=== PATIENT | female | born 1980 | race Caucasian/White ===

== ENCOUNTER 2022-08-03 07:34 | Day surgery (SDC) | payer OTHER ==
[~2022-08-03] VITALS: Ht 167.6 cm; Wt 65.6 kg
[~2022-08-03 07:34] MED LIST: MICARDIS40 MG PO; PROCARDIA XL 6060 MG PO
[2022-08-03] MEDS ORDERED: PRIL40 PO (08:12)
[2022-08-03] MEDS ORDERED: JARDIANCE10 (08:13)
[2022-08-03] MEDS ORDERED: ADALAT CC60 MG PO (08:13)
[2022-08-03] MEDS ORDERED: FERROUS SU220 MG/5 M PO (08:14)
[2022-08-03 09:15] VITALS: BP 140/76; PULSE 72; TEMP 97.9
[2022-08-03 09:30] VITALS: BP 148/87; PULSE 70
[2022-08-03 09:45] VITALS: BP 169/79; PULSE 70
[2022-08-03 10:00] VITALS: BP 155/80; PULSE 72
--- NOTE | 2022-08-03 10:15 | NUR ---
0915 RETURNS TO ROOM 6. ALERT. AMBULATES TO RECLINER FROM CART. DENIES ABD PAIN, NAUSEA OR DYSPHAGIA. IN ROOM VITAL SIGNS OBTAINED. CALL LIGHT AT SIDE. 0935 TOLERATES PO WATER WITHOUT NAUSEA. REFUSES SNACK. 0940 DISCHARGE INSTRUCTIONS REVIEWED. 1013 DR. OLMOS HERE TO VISIT WITH PATIENT.
[2022-08-03 17:08] VITALS: BP 161/82; PULSE 75; TEMP 97.3
== END 2022-08-03 10:18 | disposition home or self-care (01) ==
LOC: SDCO 07:34
DX: K31.89 Other diseases of stomach and duodenum (principal); K25.7 Chronic gastric ulcer without hemorrhage or perforation; Z98.84 Bariatric surgery status
CPT/HCPCS: C1726; J2704; J7120

== ENCOUNTER 2023-10-25 07:55 | Outpatient (CLI) | payer OTHER ==
[~2023-10-25] VITALS: Ht 167.6 cm; Wt 69.0 kg
[~2023-10-25 07:55] MED LIST changes: +ADALAT CC30 MG PO; +ADALAT CC60 MG PO; +APRESOLINE 25MG25 MG PO; +APRESOLINE50 MG PO; +CYANOCOBAL1000 MCG/1 IM; +FERROUS SU220 MG/5 M PO; +HYDRALAZINE HC100 MG PO; +JARDIANCE10; +LASIX 20MG TABL20 MG PO; +PRIL40 PO; +TAB-A-VITE MUL1 EAC1 PO; +TOPROL XL 50MG50 MG PO; +TYLENOL 500MG500 MG PO
[2023-10-25] MEDS ORDERED: Iron Sucrose 400 MG in NS 250 ML Over 150 minutes IV ONE (08:15)
[2023-10-25 08:25] VITALS: BP 152/70; PULSE 75; TEMP 97.8
[2023-10-25] MEDS ORDERED: VITAMIN D 400400 IU PO (08:53)
[2023-10-25] MEDS ORDERED: ZOFRAN 4MG T4 MG/TAB PO (08:54)
[2023-10-25] MEDS ORDERED: TUMS EXTRA STR750 MG PO (08:55)
[2023-10-25] MEDS ORDERED: CARAFATE 1GM1 G PO (08:56)
--- NOTE | 2023-10-25 11:31 | NUR ---
pt tolerated iron infusion well, vs remained within normal limits and [facility] and pt free from acute concerns and complaints upon discharge.
== END 2023-10-25 11:32 | disposition home or self-care (01) ==
LOC: EUO 07:55
DX: D64.9 Anemia, unspecified (principal)
CPT/HCPCS: J1756; J7050

== ENCOUNTER 2023-11-27 09:49 | Outpatient (CLI) | payer OTHER ==
[~2023-11-27] VITALS: Ht 167.6 cm; Wt 64.1 kg
[~2023-11-27 09:49] MED LIST changes: +CARAFATE 1GM1 G PO; +TUMS EXTRA STR750 MG PO; +VITAMIN D 400400 IU PO; +ZOFRAN 4MG T4 MG/TAB PO
[2023-11-27] MEDS ORDERED: Iron Sucrose 400 MG in NS 250 ML Over 150 minutes IV ONE (10:15)
[2023-11-27 10:56] VITALS: BP 191/95; PULSE 65; TEMP 98.6
== END 2023-11-27 14:06 ==
LOC: EUO 09:49
DX: N18.5 Chronic kidney disease, stage 5 (principal); D63.1 Anemia in chronic kidney disease
CPT/HCPCS: J1756; J7050